=== PATIENT | female | born 1950 | race Caucasian/White ===

== ENCOUNTER 2019-04-17 20:57 | Outpatient (REF) | payer MEDICARE, SELFPAY ==
[2019-04-17 21:31] LABS: Calculated LDL 189 mg/dL; Cholesterol 264 mg/dL (50-200); HDL Cholesterol 38 mg/dL (40-60); Triglyceride 187 mg/dL (30-150)
== END 2019-04-17 21:17 ==
LOC: NCHCN 20:57
PROVIDERS: PCP Family Medicine; Visit Provider Family Medicine
DX: E78.5 Hyperlipidemia, unspecified (principal)
CPT/HCPCS: 80061; 83721

== ENCOUNTER 2019-10-16 18:00 | Outpatient (REF) | payer MEDICARE, SELFPAY ==
--- NOTE | 2019-10-16 17:20 | SKI_PTH ---
PATIENT: Lizet Winter LOC: [facility] U#:[id number] AGE/SX: 69/F ROOM: RE10/16/[address]: Daniella Barcenas : 1950 BED: DIS: 10/16/2019 SPEC #: [id number] RECD: 10/17/19 12:28 STATUS: DUSTY REGisela #: [id number] KACEY: 10/16/19 17:[address]: Daniella Barcenas DEPT: Surgical Specimen RECD BY: Radha Yee Tissues: 1 - SKIN BIOPSY(SHAVE/PUNCH) Procedures: SKIN LEVEL 4 Comments: [id number]
[2019-10-16 22:09] LABS: HCT 38.2 % (36.0-46.0); HGB 13.4 g/dL (12.0-15.5); Mean Corp. HGB Concentration 35.1 g/dL (32.0-36.0); Mean Corpuscular Hemoglobin 31.8 pg (27.0-33.0); Mean Corpuscular Volume 90.5 fL (80-95); Mean Platelet Volume 8.7 fL (8.0-11.0); Platelet Count 266 x1000/uL (130-400); RBC 4.22 m/cumm (4.00-5.20); RBC Distribution Width 12.5 % (11.7-14.6)
[2019-10-16 22:19] LABS: ALT 35 U/L (14-59); AST 17 U/L (15-37); Albumin 3.9 g/dL (3.4-5.0); Alkaline Phosphatase 70 U/L (46-116); Anion Gap 8.7 mmol/L (3-11); BUN 11 mg/dL (7-18); Bilirubin, Total 0.2 mg/dL (0.2-1.0); CO2 30.3 mmol/L (21.0-32.0); CREATININE 0.82 mg/dL (0.55-1.02); Calcium 8.8 mg/dL (8.5-10.1); Chloride 103 mmol/L (98-107); Glucose 102 mg/dL (74-106); Potassium 3.6 mmol/L (3.5-5.1); Sodium 142 mmol/L (136-145); Total Protein 7.6 g/dL (6.4-8.2)
== END 2019-10-16 18:20 ==
LOC: NCHCN 18:00
PROVIDERS: PCP Family Medicine; Visit Provider Family Medicine
DX: R23.3 Spontaneous ecchymoses (principal); L95.8 Other vasculitis limited to the skin
CPT/HCPCS: 80053; 85027; 88305

== ENCOUNTER 2020-11-19 13:52 | Outpatient (REF) | payer MEDICARE, SELFPAY ==
[2020-11-21 12:33] LABS: COVID-19 RT-PCR UVMMC Result Negative (Negative)
== END 2020-11-19 13:53 | disposition home or self-care (01) ==
LOC: NCHCN 13:52
PROVIDERS: PCP Family Medicine; Visit Provider Nurse Practitioner Community Health
DX: Z20.822 Contact with and (suspected) exposure to COVID-19 (principal); R09.81 Nasal congestion
CPT/HCPCS: U0003

== ENCOUNTER 2022-12-24 22:04 | Outpatient (REF) | payer MEDICARE, SELFPAY ==
[2022-12-24 22:22] LABS: Anion Gap 9.5 mmol/L (3-11); BUN 16 mg/dL (7-18); CO2 26.5 mmol/L (21.0-32.0); CREATININE 0.9 mg/dL (0.55-1.02); Calcium 9.3 mg/dL (8.5-10.1); Chloride 105 mmol/L (98-107); Estimated GFR 68.77 (mL/min/1.73m2); Glucose 100 mg/dL (74-106); Potassium 3.7 mmol/L (3.5-5.1); Sodium 141 mmol/L (136-145)
== END 2022-12-24 22:05 | disposition home or self-care (01) ==
LOC: NCHCN 22:04
PROVIDERS: PCP Family Medicine; Visit Provider Family Medicine
DX: R73.03 Prediabetes (principal); I10 Essential (primary) hypertension
CPT/HCPCS: 80048; 83036

== ENCOUNTER 2024-01-11 08:46 | Outpatient (REF) | payer MEDICARE, SELFPAY ==
[2024-01-11 15:10] LABS: Anion Gap 5.9 mmol/L (3-11); BUN 15 mg/dL (7-18); CO2 29.1 mmol/L (21.0-32.0); CREATININE 0.9 mg/dL (0.55-1.02); Calcium 9.1 mg/dL (8.5-10.1); Chloride 106 mmol/L (98-107); Estimated GFR 68.35 (mL/min/1.73m2); Glucose 136 mg/dL (74-106); Sodium 141 mmol/L (136-145)
[2024-01-11 15:18] LABS: Hemoglobin A1C 6.3 % (<5.7)
== END 2024-01-11 08:47 | disposition home or self-care (01) ==
LOC: NCHCN 08:46
PROVIDERS: PCP Family Medicine; Visit Provider Family Medicine
DX: R73.03 Prediabetes (principal); I10 Essential (primary) hypertension
CPT/HCPCS: 80048; 83036

== ENCOUNTER 2024-02-15 15:59 | Outpatient (REF) | payer MEDICARE, SELFPAY ==
[2024-02-15 21:09] LABS: Anion Gap 9.8 mmol/L (3-11); BUN 20 mg/dL (7-18); CO2 26.2 mmol/L (21.0-32.0); Calcium 8.5 mg/dL (8.5-10.1); Chloride 103 mmol/L (98-107); Estimated GFR 60.23 (mL/min/1.73m2); Glucose 148 mg/dL (74-106); Potassium 3.3 mmol/L (3.5-5.1); Sodium 139 mmol/L (136-145)
== END 2024-02-15 16:00 | disposition home or self-care (01) ==
LOC: NCHCN 15:59
PROVIDERS: PCP Family Medicine; Visit Provider Family Medicine
DX: I10 Essential (primary) hypertension (principal)
CPT/HCPCS: 80048

== ENCOUNTER 2024-12-26 19:11 | Outpatient (REF) | payer MEDICARE, SELFPAY | END 2024-12-26 19:12 | disposition home or self-care (01) | LOC: NCHCN 19:11 | PROVIDERS: PCP Family Medicine; Visit Provider Family Medicine | DX: R30.0 Dysuria (principal) | CPT/HCPCS: 87077; 87086; 87186 ==

== ENCOUNTER 2025-02-08 10:49 | Outpatient (REF) | payer MEDICARE, SELFPAY ==
[2025-02-08 21:40] LABS: Anion Gap 8.3 mmol/L (3-11); BUN 16 mg/dL (7-18); CO2 25.7 mmol/L (21.0-32.0); Calcium 8.9 mg/dL (8.5-10.1); Chloride 105 mmol/L (98-107); Estimated GFR 59.86 (mL/min/1.73m2); Glucose 111 mg/dL (74-106); Potassium 3.3 mmol/L (3.5-5.1); Sodium 139 mmol/L (136-145)
== END 2025-02-08 10:50 | disposition home or self-care (01) ==
LOC: NCHCN 10:49
PROVIDERS: PCP Family Medicine; Visit Provider Family Medicine
DX: I10 Essential (primary) hypertension (principal)
CPT/HCPCS: 80048

== ENCOUNTER → 2025-06-13 10:48 | Outpatient (BNVA) | payer MEDICARE, SELFPAY | PROVIDERS: PCP Family Medicine; Referring Provider Family Medicine; Visit Provider Physical Therapy Assistant | DX: Z12.11 Encounter for screening for malignant neoplasm of colon (principal); I10 Essential (primary) hypertension; Z86.0101 Personal history of adenomatous and serrated colon polyps | CPT/HCPCS: S0285 ==

== ENCOUNTER 2025-06-28 07:59 | Day surgery (SDC) | payer MEDICARE, SELFPAY ==
--- NOTE | 2025-06-27 17:08 | W.PM.DSUDISC ---
Date of service: 06/28/25 Discharge Plan Disposition Patient Disposition: Home Condition: Good Discharge Details Reason For Visit: Screening colonoscopy Attending Provider: Willy Berry Primary Care Provider: Daniella Barcenas Home Meds and New Rx's Prescriptions: Continued red yeast rice 600 mg capsule 600 mg PO DAILY Rx Instructions: give with meal/snack losartan-hydrochlorothiazide 100-25 mg tablet 1 tab PO DAILY rosuvastatin 40 mg tablet 40 mg PO DAILY calcium carbonate [Calcium 600] 600 mg calcium (1,500 mg) tablet 600 mg PO DAILY Discontinued bisacodyl [Dulcolax (bisacodyl)] 5 mg tablet,delayed release (DR/EC) 5 mg PO ONCE Qty: 4 0RF Rx Instructions: Take per colonoscopy instructions provided by ordering providers office polyethylene glycol 3350 17 gram/dose powder 17 g PO ONCE Qty: 238 0RF Rx Instructions: Take per colonoscopy instructions provided by ordering providers office Discharge Instructions Instructions: Colon polyps Additional Instructions: Lizet, was pleasure meeting you today, and I hope you are comfortable through the procedure. Things went very smoothly. Your prep was great, and I can see everything fine. I did find, and remove, 1 small polyp today. To the naked eye, this is nothing at all to worry about. I will send it off to the pathologist, however, to be safe. They will send me a report in a week or two describing the nature of this polyp, and we will use that information to guide the timing of your next colonoscopy. If you need anything or have any questions at all, please do not hesitate to ask, otherwise we will be in touch once the polypectomy report is available. 1. If tolerated, consume a soft, low fiber diet for 1-2 days. 2. Do not drive, drink alcohol, operate machinery, make critical decisions, or do activities that require coordination or balance for 24 hours. 3. Because air was put into your colon during the procedure, expelling air from your rectum (passing gas or farting) is normal. 4. You may not have a bowel movement for 1-3 days because of the colonoscopy prep. This is normal. 5. Go directly to the emergency room if you notice any of the following: Develop chills (warm to touch), or if you have a thermometer and your temperature is above 101 Difficulty breathing or difficultly swallowing Persistent vomiting Severe abdominal pain, other than gas cramps Severe chest pain Black, tarry stools Any bleeding – exceeding one tablespoon 6. Call your physician if the site where your intravenous was started becomes red, swollen, painful, and warm to touch. 7. Your physician has reviewed your pre-procedure medications. Please continue to take those medications as previously ordered. You will be given specific information/education regarding any changes to your medications before leaving. Activity:: Activity as Tolerated Diet:: As Tolerated Discharge Orders Discharge Orders: Discharge Order (Routine); Ordered 06/27/25 Ordered By: Willy Berry DS: Diagnosis Discharge Diagnosis (1) Encounter for screening colonoscopy: Status: Acute Asessment and Plan: Follow-up on polypectomy results
--- NOTE | 2025-06-27 17:10 | COLE_ITS ---
Date of service: 06/28/25 Time of Service: 10:36 Colonoscopy Report Date of procedure: 06/28/25 Pre-op diagnosis general: Screening colonoscopy Post-op diagnosis procedure note: other (Colon polyp) Procedure: Colonoscopy with polypectomy Surgeon: Willy Berry Anesthesia Type: General:No Airway Estimated blood loss (mL): 5 Pathology: other (0.25 cm flat polyp at 20 cm) Complications: None Disposition: same day Indications: Lizet is a 75-year-old woman with a history of adenomatous polyps. Prep: Miralax/Dulcolax Procedure Start Time: 10:08 Procedure End Time: 10:27 Retraction Time: 8 Findings: 0.25 cm flat polyp at 20 cm Procedure Description: After the induction of anesthesia, and with the patient in left lateral decubitus position, I began by performing an external anorectal exam. Perineum and skin were normal, as was the anal verge. There was no evidence of external hemorrhoids. Next, I performed a digital rectal exam. I did not appreciate any abnormal findings. Next, I advanced a colonoscope into the rectal vault. I performed retroflexion. There were grade 1 internal hemorrhoids, but everything else is normal. Using irrigation, I then advanced the colonoscope beyond the rectal folds and into the sigmoid colon before advancing towards the cecum. The quality of the prep was excellent. The scope was noted to be in the cecum by identification of the ileocecal valve and appendiceal orifice. I then began withdrawing the colonoscope using repeated irrigation as necessary for full evaluation of the colonic mucosa. Around 20 cm from the anal verge I identified a 0.25 cm polyp. It appeared flat in character. I was able to remove this with a cold forcep polypectomy. I examined the site, and there was minimal bleeding. Once this was completed, I continued to withdraw the scope and examine the remainder of the colonic mucosa. Once the scope was withdrawn to the level of the rectum, great care was taken to examine portions of the rectal folds. Finally, the scope was withdrawn and the patient was brought to the same-day surgery recovery unit as the anesthetic wore off. The findings and instructions were shared with the patient prior to discharge. [place] Bowel Prep [place] Bowel Prep Right Colon: 3 Left Colon: 3 Transverse Colon: 3 Total Score: 9
[2025-06-28 08:32] VITALS: BP 138/76; PULSE 55; RESP 16; TEMP 36.2; O2SAT 98
[2025-06-28] MEDS: Lactated Ringers 1,000 ML 80 ML IV (08:48)
--- NOTE | 2025-06-28 09:27 | W.ANESPRE ---
General Info Date of Service Date Performed: 06/28/25 Height: 5 ft 3.5 in Weight: 60.7 kg Body Mass Index (BMI): 23.3 Surgical Procedure: Operation Date: 06/28/25 09:50 Proposed Procedure Side Surgeon p Colonoscopy Willy Berry MD Meds Allergies and Home Medications Allergies Allergy/AdvReac Type Severity Reaction Status Date / Time No Known Allergies Allergy Verified 06/28/25 08:37 Home Medication Medication Instructions Recorded calcium carbonate (Calcium 600) 600 mg PO DAILY 02/04/25 losartan 100 1 tab PO DAILY 02/04/25 mg-hydrochlorothiazide 25 mg tablet red yeast rice 600 mg capsule 600 mg PO DAILY 02/04/25 rosuvastatin 40 mg tablet 40 mg PO DAILY 02/04/25 Current Visit Medications: Current Medications Generic Name Dose Route Start Last Admin Trade Name Freq PRN Reason Stop Dose Admin Ringer's Solution 1,000 mls @ 80 mls/hr 06/28/25 06:00 06/28/25 08:48 IV 06/28/25 23:59 80 mls/hr INFUSION MORENO Administration IV Miscellaneous Supplies 1 each 06/28/25 06:00 Iv Access IV 06/28/25 23:59 DIRECTED MORENO Sodium Chloride 0 ml 06/28/25 06:00 Normal Saline Flush 10 Ml Syr IV 06/28/25 23:59 PRN PRN Sodium Chloride 0 ml 06/28/25 06:00 Normal Saline 10 Ml Vial IJ 06/28/25 23:59 DIRECTED PRN Sterile Water 0 ml 06/28/25 06:00 Water,Injection,Sterile 10 Ml Vial IJ 06/28/25 23:59 DIRECTED PRN PFSH Active Problems Active Problems: Problem Status Onset Code Encounter for screening colonoscopy Acute Z12.11 Rosacea Acute L71.9 Hyperlipidemia Acute E78.5 Medical History Medical History Prediabetes Systolic murmur Osteopenia Synovial cyst Chronic low back pain Idiopathic osteoarthritis Essential hypertension Tubular adenoma (~07/12/18) Surgical History Surgical History History of colonoscopy with polypectomy (~07/12/18) Kannan Tobacco Smoking/Tobacco Use Status: Never Passive smoking exposure: No Alcohol Alcohol Intake: current Alcohol intake frequency: 0-2 drinks per day Alcohol type: wine Substance Use Substance use: Never Substance use type: does not use Vital Signs and Lab Results Vital Signs Most Recent Vital Signs in EMR: Most Recent Vital Signs Temp Pulse Resp BP Pulse Ox 36.2 C L 55 L 16 138/76 98 06/28/25 08:32 06/28/25 08:32 06/28/25 08:32 06/28/25 08:32 06/28/25 08:32 Anesthesia Assessment and Plan Anesthesia History Personal History: No History of Anesthesia Complications Family History: No Family History of Anesthesia Complications Exercise Tolerance Exercise Tolerance: Metabolic Equivalents>4 Pertinent Negatives Pertinent Negatives: No Symptoms of GERD, No Major Cardiovascular Symptoms or Complaints and No Major Pulmonary Symptoms or Complaints Cardiac & Pulmonary Exam Cardiac Exam: Heart Murmur Present Pulmonary Exam: Clear Bilateral Breath Sounds Implantable Cardiac Device Does patient have a Pacemaker or an ICD?: No Airway Exam Known Difficult Airway: No Mallampati Class: 2 Mouth Opening: Normal (> 3cm) Thyromental Distance: Greater than 3 cm Neck Range of Motion: Full ROM Neck Circumference: Normal Teeth Condition: Normal Dentition ASA Classification ASA Score: ASA 2 Emergency Case?: No NPO Status NPO Status: NPO Clears >2 hours, Solids >8 hours Anesthesia Plan Resuscitation Status: Full Code Anesthesia Technique: General Anesthesia Airway Planned: Natural Airway Monitors Used: Standard Monitors
[2025-06-28 09:51] VITALS: BMI 23.3
--- NOTE | 2025-06-28 10:26 | BOWEL_PTH ---
PATIENT: Lizet Winter LOC: [facility] U#:[id number] AGE/SX: 75/F ROOM: RE06/28/[address]: Willy Berry MD : 1950 BED: DIS: 06/28/2025 SPEC #: [id number] RECD: 06/28/25 12:52 STATUS: DUSTY REQ #: [id number] KACEY: 06/28/25 10:[address]: Willy Berry DEPT: Surgical Specimen RECD BY: Radha Yee ENTERED: 06/28/25 12:53 SP TYPE: Bowel OTHR DR: Daniella Barcenas Tissues: 1 - BIOPSY BOWEL Procedures: GROSS AND MICRO LEVEL 4 Comments: [id number]
[2025-06-28 10:32] VITALS: BP 106/59; PULSE 53; RESP 20; TEMP 35.9; O2SAT 97
[2025-06-28 10:59] VITALS: BP 130/76; PULSE 54; RESP 16; TEMP 36.1; O2SAT 99
--- NOTE | 2025-06-28 11:20 | W.ANESPOSTOP ---
Postoperative Evaluation Date, Time and Location Date Performed: 06/28/25 Time Performed: 10:35 Patient Location: Day Surgery Unit Vital Signs Most Recent Imported Vital Signs: Most Recent Vital Signs Temp Pulse Resp BP Pulse Ox 36.1 C L 54 L 16 130/76 99 06/28/25 10:59 06/28/25 10:59 06/28/25 10:59 06/28/25 10:59 06/28/25 10:59 Pain Score Most Recent Pain Score: Most Recent Pain Score Pain Level 0 06/28/25 10:59 Assessment Mental Status: Awake (Alert & Oriented to Patient Baseline) Airway and Respiratory Function: Patent airway with normal (patient baseline) respiratory exam Cardiovascular Function: Hemodynamically Stable Hydration Status: Adequately Hydrated Nausea & Vomiting: No Nausea or Vomiting Pain: Pt. Denies Any Pain Peripheral Nerve Block: Patient did not receive a nerve block
== END 2025-06-28 11:27 | disposition home or self-care (01) ==
LOC: SUR 07:59
PROVIDERS: PCP Family Medicine; Visit Provider Surgery
PROC: 0DJD8ZZ Inspection of Lower Intestinal Tract, Via Natural or Artificial Opening Endoscopic (ICD-10-PCS; CPT 45378; principal; 2025-06-28 09:45)
DX: Z12.11 Encounter for screening for malignant neoplasm of colon (principal); K63.5 Polyp of colon
CPT/HCPCS: 45380; 88305; J2003; J2704